=== PATIENT | female | born 1945 | race Caucasian/White ===

== ENCOUNTER 2017-03-07 10:35 | Emergency (ER) | payer BC, MEDICARE ==
[2017-03-07 10:48] VITALS: BP 145/89; TEMP 97.1; O2SAT 97
--- NOTE | 2017-03-07 11:05 | ED.PDOC ---
History of Present Illness - General Chief Complaint: Problem Stated Complaint: burning with urination Time Seen by Provider: 03/07/17 11:03 Source: patient Exam Limitations: no limitations - History of Present Illness Timing/Duration: this morning Quality: mild Onset Location: suprapubic Radiation: none Activites at Onset: none Prior abdominal problems: none Worsening Factors: nothing Associated Symptoms: dysuria Allergies/Adverse Reactions: Allergies NO KNOWN ALLERGY Allergy (Verified 03/07/17 10:47) Home Medications: Ambulatory Orders Albuterol Sulfate [Proair Hfa] 2 puff INH Q6H PRN 03/07/17 Ciprofloxacin [Cipro] 500 mg PO BID #14 tab 03/07/17 Phenazopyridine HCl [Pyridium] 200 mg PO TID #7 tab 03/07/17 Review of Systems - Review of Systems Constitutional: Denies: chills, fever Gastrointestinal/Abdominal: Denies: abdominal pain, nausea, vomiting Genitourinary: States: dysuria, hematuria Skin: Denies: change in color, rash Past Medical History (General) - Patient Medical History Hx of COPD: Yes Hx Congestive Heart Failure: No Hx Diabetes: No - Vaccination History Hx Influenza Vaccination: No Hx Pneumococcal Vaccination: No - Social History Hx Tobacco Use: Yes Family Medical History - Family History Mother Family History: Unknown Living Status: Unknown Physical Exam - Physical Exam General Appearance: Alert, Comfortable, No apparent distress Gastrointestinal/Abdominal: normal bowel sounds, soft, tenderness - mild suprapubic Back Exam: no CVA tenderness Extremity: normal range of motion Neurologic: supervising nurse II-XII nml as tested, alert, normal mood/affect, oriented x 3 Skin Exam: normal color, warm/dry Progress - Results/Orders Results/Orders: 03/07/17 10:45 URINE CULTURE W/COLONY COUNT Stat Laboratory Results - last 24 hr 03/07/17 10:45 Urine Color Yellow Urine Appearance Sl cloudy Urine pH 6.5 Ur Specific [place] <= 1.005 Urine Protein 30 Urine Glucose (UA) Negative Urine Ketones Negative Urine Blood Large H Urine Nitrite Positive H Urine Bilirubin Negative Urine Urobilinogen 0.2 Ur Leukocyte Esterase Small H Urine RBC >50 H Urine WBC 10-20 H Ur Epithelial Cells 0 Urine Bacteria 2+ H Departure - Departure Clinical Impression: UTI (urinary tract infection) Time of Disposition: 11:06 Disposition: Discharge to Home or Self Care Condition: Good Departure Forms: ED Discharge - Pt. Copy, Patient Portal Self Enrollment Instructions: DI for Urinary Tract Infection (UTI) Diet: resume usual diet Referrals: NARINDER MALCOLM [Primary Care Provider] - 1-2 Weeks Prescriptions: Ciprofloxacin [Cipro] 500 mg PO BID #14 tab Phenazopyridine HCl [Pyridium] 200 mg PO TID #7 tab Home Medications: Ambulatory Orders Albuterol Sulfate [Proair Hfa] 2 puff INH Q6H PRN 03/07/17 Ciprofloxacin [Cipro] 500 mg PO BID #14 tab 03/07/17 Phenazopyridine HCl [Pyridium] 200 mg PO TID #7 tab 03/07/17
== END 2017-03-07 11:21 | disposition home or self-care (01) ==
LOC: ER 10:35
DX: N39.0 Urinary tract infection, site not specified (principal); J44.9 Chronic obstructive pulmonary disease, unspecified